=== PATIENT | female | born 1960 | race Caucasian/White ===

== ENCOUNTER 2019-04-04 16:31 | Emergency (ER) | payer MEDICARE, SELFPAY ==
--- NOTE | ~2019-04-04 | XR_ITS ---
EXAMINATION: XR knee LT min 4V EXAM DATE: 04/04/2019 16:51 INDICATION: Initial encounter following injury, with pain of the left lateral posterior knee pain af ter fall. TECHNIQUE: Left knee frontal, crosstable lateral, orthogonal oblique projections for interpretation. There is no prior study for comparison. FINDINGS: There is acute mildly depressed fracture through the lateral tibial plateau, a closed post traumatic finding. This finding has been indicated, marked on the examination for review, clinical co rrelation. There is a small joint effusion. Bones are osteopenic. Bulky bony productive change yasmin g the medial femoral condyle. Probably moderate patellofemoral compartment primary osteoarthritis. IMPRESSION: 1. Acute mildly depressed left lateral tibial plateau fracture. Reviewed, dictated and finalized at location A. 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
[2019-04-04 16:33] VITALS: BP 129/73; PULSE 118; RESP 20; TEMP 36.3; O2SAT 98
--- NOTE | 2019-04-04 16:39 | ED.LOWEXIN ---
HPI - Extremity Injury (Lower) General Chief Complaint: Extremity Injury, Lower Stated Complaint: fall Time Seen by Provider: 04/04/19 16:38 Source: patient Mode of arrival: ambulatory Limitations: no limitations History of Present Illness HPI Narrative: A 59 y/o female presents to the ED with c/o left knee injury. Pt states that today she was chasing her dog down the hallway at home when she tripped and fell. She notes that her left knee twisted and became painful. Pt denies numbness and tingling. She has a PMHx of left knee heterotopic ossification. Pt took Dorris prior to her ED visit and is unable to bear weight on her left leg. complaint: knee injury (Left) Onset (ago): hour(s) (Today) Injury: Left: knee Place: home Context: fall Associated symptoms: unable to bear weight and other (Left knee pain) Other symptoms: none Treatments prior to arrival: other (Dorris) Related Data Allergies Allergy/AdvReac Type Severity Reaction Status Date / Time ampicillin Allergy Unknown Unknown Verified 04/04/19 16:39 benzocaine Allergy Unknown Unknown Verified 04/04/19 16:39 Penicillins Allergy Unknown Unknown Verified 04/04/19 16:39 butamben Allergy STOPPED Verified 04/04/19 16:39 BREATHING tetracaine Allergy STOPPED Verified 04/04/19 16:39 BREATHING Review of Systems Review of Systems: All systems reviewed & are unremarkable except as noted in HPI and below Musculoskeletal: Musculoskeletal: Reports myalgias (Left knee) Neurologic: Denies numbness and Denies tingling PMFSH Past Medical History Medical History (Updated 04/04/19 @ 17:43 by Remy Calderon MD) Anemia Barretts esophagus Cervical cancer Depression GERD (gastroesophageal reflux disease) Heterotopic ossification of bone Left knee History of blood transfusion History of hemorrhoids Mitral valve prolapse MRSA (methicillin resistant Staphylococcus aureus) Peripheral neuropathy Post-menopausal Sepsis Short bowel syndrome Stage III chronic kidney disease Tricuspid valve disorder Uterine cancer Surgical History Surgical History (Updated 04/04/19 @ 17:04 by Nancy Sanchez) History of bowel resection History of gastric bypass History of hysterectomy Family History Family History Sibling Hypertension Patient's brother is in good health Family history of diabetes mellitus in first degree relative Family history of lung cancer, Onset Age: 54 Family history of coronary artery disease Father Patient's father is in good health Mother Family history of diabetes mellitus in first degree relative Family history of heart disease in male family member before age 55 Other Cerebrovascular accident Diabetes mellitus Family history of arthritis Family history of cardiovascular disease Family history of malignant neoplasm Family history of mental disorder Social History Social History (Updated 04/04/19 @ 16:43 by Nancy Sanchez) Smoking status: Never smoker Smoking end date: 03/31/00 Alcohol intake: current Substance use: current Substance use type: marijuana Exam Narrative: Exam Narrative: GENERAL: Well-appearing, well-nourished, and in no acute distress. HEAD: Normocephalic, atraumatic. ENT: Mucous membranes moist EXTREMITIES: Focused exam of the left lower extremity reveals significant tenderness to the lateral knee with mild effusion. There is deformity to the medial aspect of the knee that is chronic per patient. No patellar tenderness or medial joint pain. Neurovascular intact distal to injury. SKIN: Warm, dry, no rash. NEURO: No focal deficits. Alert and oriented x3. Course Course Emergency Course: Patient placed in knee immobilizer. She will be given crutches and instructed be nonweightbearing. Discussed need for follow-up and treatment of pain and spasm. Consultations Consultation #1: Discussed case with orthopedic surgeon Dr. Aldana. They recommend a walker
[2019-04-04] MEDS: KETOROLAC 30 MG/ML VIAL (*BKC) IV PUSH (17:28)
[2019-04-04] MEDS: CYCLOBENZAPRINE HCL 10 MG TABLET 5 MG PO (17:28)
== END 2019-04-04 18:20 | disposition home or self-care (01) ==
PROVIDERS: Emergency Provider Emergency Medicine; PCP Internal Medicine
DX: S82.142A Displaced bicondylar fracture of left tibia, initial encounter for closed fracture (principal); K22.70 Barrett's esophagus without dysplasia; Z85.41 Personal history of malignant neoplasm of cervix uteri; K21.9 Gastro-esophageal reflux disease without esophagitis; I34.1 Nonrheumatic mitral (valve) prolapse; Z86.14 Personal history of Methicillin resistant Staphylococcus aureus infection; G62.9 Polyneuropathy, unspecified; N18.3 Chronic kidney disease, stage 3 (moderate); W01.0XXA Fall on same level from slipping, tripping and stumbling without subsequent striking against object, initial encounter; Z85.42 Personal history of malignant neoplasm of other parts of uterus; Z98.84 Bariatric surgery status; F32.9 Major depressive disorder, single episode, unspecified; Z86.2 Personal history of diseases of the blood and blood-forming organs and certain disorders involving the immune mechanism; I07.9 Rheumatic tricuspid valve disease, unspecified
CPT/HCPCS: 73564; 96374; 99284; A9270; J1885

== ENCOUNTER 2022-12-17 10:19 | Outpatient (CLI) | payer MEDICARE, SELFPAY ==
--- NOTE | ~2022-12-17 | DEXA_ITS ---
Bone Density Report Name: SAROJ VAUGHN Age: 62 Sex: Female Ethnicity: White Date of : 1960 Indication: osteopenia; height loss; inflammatory bowel disease; prior fracture; hysterectomy; postmenopausal Referring Provider: DALI ALBERTO Study: Bone densitometry was performed. Exam Date: December 17, 2022 Accession number: [id number] Bone Density: Region BMD T-score Z-score Classification AP Spine(L1-L4) 1.005 -0.4 1.2 Normal Femoral Neck (Left) 0.508 -3.1 -1.7 Osteoporosis Total Hip (Left) 0.636 -2.5 -1.5 Osteoporosis Femoral Neck (Right) 0.620 -2.1 -0.7 Osteopenia Total Hip (Right) 0.704 -2.0 -0.9 Osteopenia Total Hip Mean 0.670 -2.3 -1.2 Osteopenia World Health Organization criteria for BMD impression classify patients as: Normal (T-score at or above -1.0), Osteopenia (T-score between -1.0 and -2.5), or Osteoporosis (T-score at or below -2.5). 10-year Fracture Risk: FRAX not reported because: Some T-score for Spine Total or Hip Total or Femoral Neck at or below -2.5 Previous Exams: Region Exam Age BMD T-score BMD Change BMD Change Date g/cm2 vs Baseline vs Previous AP Spine (L1-L4) 12/17/2022 62 1.005 -0.4 -0.082 (-7.6%) -0.082 (-7.6%) 10/17/2014 54 1.087 0.4 Total Hip(Left) 12/17/2022 62 0.636 -2.5 -0.040 (-6.0%) -0.040 (-6.0%) 10/17/2014 54 0.677 -2.2 Total Hip(Right) 12/17/2022 62 0.704 -2.0 -0.049 (-6.5%) -0.049 (-6.5%) 10/17/2014 54 0.752 -1.6 *Denotes significance at 95% confidence level, LSC for AP Spine = 0.022 g/cm2, LSC for Total Hip = 0.027 g/cm2 Clinical Information Provided by Patient: Has had a low trauma fracture Has used the following medications: Calcium Has the following medical conditions: Inflammatory bowel diseases, Hysterectomy Patient maximum height was 64 Menopause Age: 29 No regular weight bearing exercise Onset of menses at age 17 Number of children 0 Impression: The patient has established osteoporosis, based on the Left Femoral Neck T-score and the existence of a prior fracture. The patient has risk factors, including: previous fracture. The BMD for the AP Spine (L1-L4) decreased, changing by -7.6% since the last DXA exam. The BMD for the Total Hip(Left) decreased, changing by -6.0% since the last DXA exam. The BMD for the Total Hip(Right) decreased, changing by -6.5% since the last DXA exam. Discussion: HIGH RISK OF FRACTURE. BONE DENSITY IS UNDESIRABLY LOW AT ONE OR MO
--- NOTE | ~2022-12-17 | MM_ITS ---
EXAMINATION: MM screening cheryl BI w yennifer HISTORY: Screening TECHNIQUE: Craniocaudal and mediolateral oblique 3-D tomosynthesis images were obtained and synthetic 2-D images were generated. CAD analysis was submitted and interpreted. COMPARISON: Comparison to multiple prior studies sequentially, with oldest reviewed study dated 10/17. BREAST PARENCHYMAL COMPOSITION: Breast composition is almost entirely fatty FINDINGS: There is no evidence of suspicious mass, calcification, or architectural distortion to sugg est malignancy in either breast. There has been no suspicious interval change. IMPRESSION: 1. No mammographic evidence of malignancy. 2. Recommend routine screening mammography in one year. BI-RADS Category 1: Negative Reviewed, dictated and finalized at location A.
== END 2022-12-17 10:20 | disposition home or self-care (01) ==
PROVIDERS: PCP Family Medicine; Visit Provider Nurse Practitioner Family
DX: Z12.31 Encounter for screening mammogram for malignant neoplasm of breast (principal); Z78.0 Asymptomatic menopausal state; M81.0 Age-related osteoporosis without current pathological fracture; M85.851 Other specified disorders of bone density and structure, right thigh
CPT/HCPCS: 77063; 77067; 77080

== ENCOUNTER 2025-01-24 09:56 | Outpatient (CLI) | payer MEDICARE, SELFPAY ==
--- OUTSIDE RECORDS SUMMARY | 2009-04-07 05:15 | XMS_ITS | Continuity of Care Document ---
Author Organization [facility] Address [address] [place] [address] [address] [place] [address] Phone Care Team Providers Care Assistant To The Dean Name Role Phone Vaughn OD, Brandon Unavailable Unavailable Procedures Procedure Date Eye Exam & Treatment Refraction Advance Directives Directive Yes / No Effective Date File Name No Information Encounters Encounter Description Practice Location Reason(s) For Visit Diagnoses Date Provider Providers Copied on Encounter [facility], [address] [place] [address] [address], [place], [place], [id number], [place] tel:[phone] [facility] No Information [phone] Vaughn OD Brandon. [address] , [address], [place], [address], [place]. tel:[phone] Family History Family Member Type Diagnosis Age At Onset No Information Payers Payer name Insurance type Covered alliance party ID Authoriza tion(s) No Information Social History Type Description Quantity Date Captured Comments Sex Female Smoking Status No Information Chief Complaint And Reason For Visit No Information Reason For Referral Reason For Referral No Information History Of Present Illness Encounter Date Complaint History Of Prese nt Illness No Information Functional Status Date Functional Assessmen t No Information Instructions Date Instruction Additional Infor mation No Information Assessments Type Assessment Date No Information Patient Care Teams Name Effective Dates (start - stop) Status Members No Information
--- NOTE | ~2025-01-24 | DEXA_ITS ---
Bone Density Report Name: SAROJ VAUGHN Age: 64 Sex: Female Ethnicity: White Date of : 1960 Indication: postmenopausal osteoporosis; height loss; inflammatory bowel disease; prior fracture; cancer; hysterectomy; Referring Provider: DALI ALBERTO Study: Bone densitometry was performed. Exam Date: January 24, 2025 Accession number: [id number] Bone Density: Region BMD T-score Z-score Classification AP Spine(L1-L4) 0.990 -0.5 1.2 Normal Femoral Neck (Left) 0.577 -2.5 -1.0 Osteoporosis Total Hip (Left) 0.707 -1.9 -0.8 Osteopenia Femoral Neck (Right) 0.602 -2.2 -0.8 Osteopenia Total Hip (Right) 0.773 -1.4 -0.2 Osteopenia Total Hip Mean 0.740 -1.7 -0.5 Osteopenia World Health Organization criteria for BMD impression classify patients as: Normal (T-score at or above -1.0), Osteopenia (T-score between -1.0 and -2.5), or Osteoporosis (T-score at or below -2.5). 10-year Fracture Risk: FRAX not reported because: Some T-score for Spine Total or Hip Total or Femoral Neck at or below -2.5 Previous Exams: Region Exam Age BMD T-score BMD Change BMD Change Date g/cm2 vs Baseline vs Previous AP Spine (L1-L4) 01/24/2025 64 0.990 -0.5 -0.097 (-9.0%) -0.015 (-1.5%) 12/17/2022 62 1.005 -0.4 -0.082 (-7.6%) -0.082 (-7.6%) 10/17/2014 54 1.087 0.4 Total Hip(Left) 01/24/2025 64 0.707 -1.9 0.030 (4.4%)* 0.070 (11.1%)* 12/17/2022 62 0.636 -2.5 -0.040 (-6.0%) -0.040 (-6.0%) 10/17/2014 54 0.677 -2.2 Total Hip(Right) 01/24/2025 64 0.773 -1.4 0.020 (2.7%) 0.069 (9.8%)* 12/17/2022 62 0.704 -2.0 -0.049 (-6.5%) -0.049 (-6.5%) 10/17/2014 54 0.752 -1.6 *Denotes significance at 95% confidence level, LSC for AP Spine = 0.022 g/cm2, LSC for Total Hip = 0.027 g/cm2 Clinical Information Provided by Patient: Has had a low trauma fracture Has used the following medications: Prolia (i.e. denosumab), Calcium Has the following medical conditions: Cancer, Inflammatory bowel diseases, Hysterectomy Patient maximum height was 64 Menopause Age: 29 No regular weight bearing exercise Drinks caffeinated beverages Onset of menses at age 17 Number of children 0 Impression: The patient has established osteoporosis, based on the Left Femoral Neck T-score and the existence of a prior fracture. The patient has risk factors, including: previous fracture. No significant bone loss was observed. Discussion: HIGH RISK OF FRACTURE. BONE DENSITY IS UNDESIRABLY LOW AT ONE OR MORE SKELETAL SITES, CONSISTENT WITH POSTMENOPAUSAL OSTEOPOROSIS. This patient's lowest T-score, in a patient who has previously fractured, meets the World Health Organization's (WHO) criteria for severe osteoporosis. In untreated patients, the risk of osteoporotic fracture increases approximately two-fold for each 1.0 SD decrease in T-score. Low bone density is not the only risk factor for fracture; also consider factors such as patient's age, frailty or poor health, risk of falling, risk of injury, previous osteoporotic fracture, family history of osteoporosis, cigarette smoking, low body weight, etc. Not everyone with low bone mineral density has osteoporosis; osteomalacia and other metabolic bone disorders should also be considered. Patients who have osteoporosis should be evaluated for specific diseases and conditions (secondary causes) that may cause or contribute to bone loss. The [place] [employer]ocrin[employer] (AACE) and National Osteoporosis Foundation (NOF) recommend pharmacologic intervention for all postmenopausal women whose T-score is in this range. The patient should follow a healthful lifestyle (good nutrition with adequate calcium and vitamin D, and appropriate weight-bearing exercise). Follow-Up: Consider a repeat BMD and Vertebral Fracture Assessment (VFA) exam in 2 years or sooner if medically necessary, to reassess this patient's status. Reported by: STEPHY on 01/24/2025 10:39:00 AM. Reviewed, dictated and finalized at location A.
== END 2025-01-24 09:57 | disposition home or self-care (01) ==
LOC: ANHFOHIMG 10:01
PROVIDERS: PCP Nurse Practitioner Family; Visit Provider Nurse Practitioner Family
DX: Z78.0 Asymptomatic menopausal state (principal); M81.0 Age-related osteoporosis without current pathological fracture; M85.852 Other specified disorders of bone density and structure, left thigh; M85.851 Other specified disorders of bone density and structure, right thigh
CPT/HCPCS: 77080